=== PATIENT | male | born 1975 | race Two or more races ===

== ENCOUNTER → 2024-05-29 | Outpatient (BNVA) | payer BC, SELFPAY | END | disposition home or self-care (01) | PROVIDERS: PCP Nurse Practitioner Family; Referring Provider Nurse Practitioner Family; Visit Provider Urology | DX: N40.1 Benign prostatic hyperplasia with lower urinary tract symptoms (principal); N13.8 Other obstructive and reflux uropathy; R36.1 Hematospermia; R31.29 Other microscopic hematuria; I10 Essential (primary) hypertension; E66.9 Obesity, unspecified; Z68.28 Body mass index [BMI] 28.0-28.9, adult | CPT/HCPCS: 81003; 99202; G0463 ==

== ENCOUNTER → 2024-05-29 | Outpatient (CLI) | payer BC, SELFPAY | END | disposition home or self-care (01) | PROVIDERS: PCP Nurse Practitioner Family; Referring Provider Urology; Visit Provider Urology | DX: N40.1 Benign prostatic hyperplasia with lower urinary tract symptoms (principal) | CPT/HCPCS: 36415; 84153 ==

== ENCOUNTER → 2024-07-03 | Outpatient (BNVA) | payer BC, SELFPAY | END | disposition home or self-care (01) | PROVIDERS: PCP Nurse Practitioner Family; Referring Provider Nurse Practitioner Family; Visit Provider Urology | DX: N40.1 Benign prostatic hyperplasia with lower urinary tract symptoms (principal); R39.12 Poor urinary stream | CPT/HCPCS: 51741; 51798 ==

== ENCOUNTER 2024-07-08 07:50 | Day surgery (SDC) | payer BC, SELFPAY ==
[2024-07-04 14:14] VITALS: BMI 28.7
[2024-07-08] VITALS (12 sets, daily range): BP systolic 112–151; BP diastolic 68–96; PULSE 65–96; RESP 10–24; TEMP 36.2; O2SAT 95–99; BMI 27.6
--- NOTE | 2024-07-08 08:43 | SUR.PREOP ---
notified 500 ml saline bags are not available. okayed 100 ml bags of normal saline for todays procedure.
[2024-07-08] MEDS: SODIUM CHLORIDE 0.9% 50 ML 100 ML IV (09:18)
[2024-07-08] MEDS: MIDAZOLAM INJ 1 MG/ML VIAL 2 ML (ASD USE ONLY) 2 MG IV (09:19)
[2024-07-08] MEDS: DiphenhydrAMINE INJ 50 MG/ML VIAL 25 MG IV (09:28)
[2024-07-08] MEDS: fentaNYL CIT INJ 50 mCg/ML AMP 2ML (ASD USE ONLY) IV (09:28)
[2024-07-08] MEDS: SIMETHICONE 40 MG/0.6 ML ORAL SYRINGE PO (09:29)
== END 2024-07-08 10:25 | disposition home or self-care (01) ==
PROVIDERS: PCP Nurse Practitioner Family; Referring Provider Internal Medicine Gastroenterology; Visit Provider Internal Medicine Gastroenterology
PROC: 0DBE8ZX Excision of Large Intestine, Via Natural or Artificial Opening Endoscopic, Diagnostic (ICD-10-PCS; CPT 45380; principal; 2024-07-08 08:00)
PROC: (CPT 43239; 2024-07-08 08:00)
DX: K52.9 Noninfective gastroenteritis and colitis, unspecified (principal); D12.5 Benign neoplasm of sigmoid colon; K64.9 Unspecified hemorrhoids; K57.31 Diverticulosis of large intestine without perforation or abscess with bleeding
CPT/HCPCS: 45380; A4217; A4649; J1200; J2250; J3010; A9270

== ENCOUNTER → 2024-07-14 | Outpatient (CLI) | payer BC, SELFPAY ==
--- NOTE | 2024-07-14 10:30 | XR_ITS ---
Examination: CT abdomen with intravenous contrast CT pelvis with intravenous contrast 2-D coronal reconstructions 2-D sagittal reconstructions Date and time of exam:July 14, 2024 1045 hrs. Indications: Hematuria beginning one month ago. CTDI: vol (mGy) 14.1 DLP: (mGycm) 797 Technique: Multiple axial sections of the abdomen and pelvis have been obtained. 64 slice high-resolution scanner used. 3 mm axial sections have been obtained, post intravenous injection 60 cc [id number] 2-D sagittal, coronal reconstructions obtained. Low dose protocols were performed. One or more of the following dose reduction techniques were used; automated exposure control, adjustment of the mA and/or KV according to patient size, use of iterative reconstruction technique. 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
== END | disposition home or self-care (01) ==
LOC: CCTX 10:05
PROVIDERS: Referring Provider Urology; Visit Provider Urology
DX: Q62.39 Other obstructive defects of renal pelvis and ureter (principal)
CPT/HCPCS: 74177; A4649; Q9967

== ENCOUNTER → 2024-07-21 | Outpatient (BNVA) | payer BC, SELFPAY | END | disposition home or self-care (01) | PROVIDERS: PCP Nurse Practitioner Family; Referring Provider Nurse Practitioner Family; Visit Provider Urology | DX: N40.1 Benign prostatic hyperplasia with lower urinary tract symptoms (principal); N13.8 Other obstructive and reflux uropathy; R36.1 Hematospermia; I10 Essential (primary) hypertension | CPT/HCPCS: 76872 ==

== ENCOUNTER → 2024-08-29 | Outpatient (BNVA) | payer BC, SELFPAY | END | disposition home or self-care (01) | PROVIDERS: PCP Nurse Practitioner Family; Referring Provider Nurse Practitioner Family; Visit Provider Urology | DX: N32.89 Other specified disorders of bladder (principal); N40.1 Benign prostatic hyperplasia with lower urinary tract symptoms; N13.8 Other obstructive and reflux uropathy; I10 Essential (primary) hypertension; E78.00 Pure hypercholesterolemia, unspecified | CPT/HCPCS: 52000; 81003; 96372; A4217; A4649; C1894; J1580; A9270 ==

== ENCOUNTER → 2024-09-04 | Outpatient (CLI) | payer BC, SELFPAY ==
--- NOTE | 2024-09-04 14:30 | XR_ITS ---
Examination: Nuclear medicine kidney imaging flow and function multiple studies Exam date and time: September 04, 2024, 1412 hrs. Indications: Lower back pain beginning 3 years ago, CT urogram July 14, 2024 bilateral mild to moderate congenital ureteropelvic junction obstruction pattern Technique And Findings: Intravenous administration 10.5 mCi technetium 99m MAG3 Intravenous Lasix 40 mg administered 20 minutes post MAG3 injection Normal flow and function right and left kidneys Lasix has no effect upon the excretion curves Impression: Negative examination
[2024-09-04 15:06] VITALS: BP 142/78; PULSE 58
[2024-09-04] MEDS: FUROSEMIDE INJ 10 MG/ML VIAL 2 ML 40 MG IVP (15:06)
== END | disposition home or self-care (01) ==
LOC: SNUC 13:49
PROVIDERS: PCP Urology; Referring Provider Urology; Visit Provider Urology
DX: N13.30 Unspecified hydronephrosis (principal); R36.1 Hematospermia
CPT/HCPCS: 78709; A9562; J1940

== ENCOUNTER → 2024-09-05 | Outpatient (BNVA) | payer BC, SELFPAY | END | disposition home or self-care (01) | PROVIDERS: Visit Provider Urology | DX: N40.0 Benign prostatic hyperplasia without lower urinary tract symptoms (principal); R31.9 Hematuria, unspecified; I10 Essential (primary) hypertension; E78.00 Pure hypercholesterolemia, unspecified | CPT/HCPCS: 99212; G0463 ==

== ENCOUNTER 2024-09-24 07:40 | Day surgery (SDC) | payer BC, SELFPAY ==
[2024-09-23 11:14] VITALS: BMI 28.1
--- NOTE | 2024-09-23 11:25 | EKG_ITS ---
[facility] Test Date: 2024-09-23 Pat Name: JENNIFER FARIAS Department: Room: - Gender: Male Candle Pourer: RUTHY : 1975 Requested By: Ryder Vila Order Number: [id number] Reading MD: Ryder Vila Measurements Intervals [place] Rate: 59 P: 47 TX: 154 QRS: 15 QRSD: 83 T: 46 QT: 361 QTc: 359 Interpretive Statements SINUS BRADYCARDIA WITH OCCASIONAL SUPRAVENTRICULAR PREMATURE COMPLEXES No previous ECG available for comparison /store/[email or web address]/[id number]/[id number].pdf
[2024-09-23 13:44] LABS: Alanine Aminotransferase 24 U/L (10-49); Albumin, Serum 4.6 gm/dL (3.5-5.0); Albumin/Globulin Ratio 1.7 (1.2-2.2); Alkaline Phosphatase 63 U/L (46-116); Anion Gap 5 (7-16); Aspartate Amino Transferase 18 U/L (0-34); BUN/Creatinine Ratio 23 Ratio (12-20); Bilirubin,Total 0.4 mg/dL (0.3-1.2); Blood Urea Nitrogen 18 mg/dL (9-23); Calcium 9.5 mg/dL (8.3-10.6); Calcium (Corrected) 9.5 mg/dL (8.5-10.1); Chloride 105 mMol/L (98-107); Creatinine (Component) 0.8 mg/dL (0.6-1.3); Estimated Creatinine Clearance 114.1 mL/min (>60); Globulin 2.7 gm/dL (2.3-3.5); Glucose 91 mg/dL (74-106); Osmolality,Calculated 272 (275-295); Potassium 4.1 mMol/L (3.4-5.1); Sodium 135 mMol/L (136-145); Total Protein 7.3 gm/dL (5.7-8.2); eGFR > 60 See Note
[2024-09-24] VITALS (7 sets, daily range): BP systolic 125–156; BP diastolic 78–99; PULSE 59–93; RESP 12–20; TEMP 36.3–36.8; O2SAT 95–97; BMI 27.2
--- NOTE | 2024-09-24 11:22 | SUR.PHASEI ---
1122: Pt. wakes to name then drifts back to sleep, vitals stable, breathing unlabored, no signs of distress, no dressingin place, no active bleed noted, report received from [employer] MEDINA, Rui CORONEL and MD Solis.
[2024-09-24] MEDS: HYDROmorphone INJ 2 MG/ML VIAL 0.4 MG IVP ×2 (11:40→11:54)
--- NOTE | 2024-09-24 12:15 | SUR.PHASEII ---
1215: Pt. AAOx4, vitals stable, breathing unlabored, no complaint of pain or nausea, no dressing in place, pt. able to void hematuria, pt. toleratred sips of water well, pt. ambulated to wheelchair with steady gait and no assist, no complications. Gave discharge instructions to the pt. and his ride using copier repair technician, both verbalized understanding and had no further questions. Pt. left with all personal belongings.
--- NOTE | 2024-09-24 13:11 | PD.SUROPNT ---
Date of Procedure 09/24/24 Pre Op Diagnosis BPH with urinary obstruction, hematospermia, bilateral ureteropelvic junction obstruction Post Op Diagnosis BPH with urinary obstruction no ureteropelvic junction obstruction identified Procedure Cystoscopic examination bilateral retrograde pyelogram bilateral ureteroscopy Findings No ureteropelvic junction obstruction identified Procedure Description Indications of procedure this is a 48-year-old gentleman he was seen in urology office with BPH with urinary obstruction and hematospermia and he has a CAT scan of the abdominal pelvis done with contrast which revealed bilateral ureteropelvic junction obstruction. Patient has been seen by Dr. Toro he was recommended cystoscopy retrograde ureteroscopy procedure and complications were discussed with the patient in great detail informed consent is obtained Patient was brought to the operating room in a satisfactory condition after appropriate premedication was put on the operating table in a supine position general anesthesia was given uneventfully patient was positioned in a dorsal lithotomy position parts were prepped and draped in the usual sterile fashion 2% lidocaine was instilled into the urethra. 21 cystoscope was used to to do the cystoscopy examination of anterior urethra was without any stricture prostate urethra revealed bilobar prostatic hypertrophy. Inside of the bladder and all the quadrant was carried out he had moderate to coarse bladder trabeculation no tumor stone or diverticula was identified both ureteral orifices were identified they were effluxing clear urine next I passed a open-ended Pollick catheter right side through the open-ended Pollick catheter I passed the safety wire into the upper pole calyx semirigid ureteroscope was used to do ureteroscopy and there was no obstruction identified. Next through the ureteroscope I did retrograde pyelogram again no ureteral obstruction was identified no ureteropelvic junction obstruction identified and similar procedure was repeated on the left side findings were the same on the left side. Delayed film revealed no ureteropelvic junction obstruction. Bladder was emptied after instruments were withdrawn gently patient after having tolerated the procedure well was sent to the recovery room in a satisfactory condition to be discharged home with the full postoperative instructions verbally as well as in writing to be followed in urology office Anesthesia GETA Pathology / specimen None Estimated Blood Loss 0.5 Condition Stable Disposition PACU Surgeon Shauna Harley MD Surgical Staff Operation Date: 09/24/24 10:15 Case Staff Anesthesiologist: Kennedy Solis
--- NOTE | 2024-09-24 13:45 | XR_ITS ---
Examination: Intraoperative retrograde pyelogram Fluoroscopy 4 spot fluoroscopic abdomen films Exam date and time: September 24, 2024 1142 hours INDICATIONS: Back pain flank pain beginning 3 years ago, bilateral mild to moderate congenital ureteropelvic junction obstruction pattern on CT urogram July 14, 2024 TECHNIQUE AND FINDINGS: Fluoroscopy 10 seconds 4 spot fluoroscopic films of the abdomen Opacification of the calyceal systems with no significant hydronephrosis IMPRESSION: Retrograde pyelograms as above
== END 2024-09-24 12:15 | disposition home or self-care (01) ==
PROVIDERS: Anesthesiology; PCP Family Medicine; Referring Provider Urology; Visit Provider Urology
PROC: 0TJB8ZZ Inspection of Bladder, Via Natural or Artificial Opening Endoscopic (ICD-10-PCS; CPT 52000; principal; 2024-09-24 10:00)
DX: N40.1 Benign prostatic hyperplasia with lower urinary tract symptoms (principal); R36.1 Hematospermia; N13.8 Other obstructive and reflux uropathy; Z01.810 Encounter for preprocedural cardiovascular examination
CPT/HCPCS: 52351; 36415; 74420; 80053; 93005; A4217; A4649; C1769; C1894; J1100; J1171; J2250; J2405; J2704; J3010

== ENCOUNTER 2024-09-26 18:05 | Emergency (ER) | payer BC, SELFPAY ==
[2024-09-26 18:48] VITALS: BP 129/82; PULSE 87; RESP 18; TEMP 37.6; O2SAT 97; BMI 25.5
--- NOTE | 2024-09-26 18:52 | XR_ITS ---
Examination: CT abdomen and pelvis without contrast. Coronal 3-D reconstructions. Sagittal 2-D reconstructions. Date and time of exam:September 26, 2024 1904 hours Comparison July 14, 2024 INDICATIONS: History right flank pain 3 days CTDI: vol (mGy): 7.14 DLP: (mGycm): 445 Technique: Axial images of the abdomen have been obtained, 3 mm slice thickness Intravenous contrast material has not been administered. Low dose protocols were performed. One or more of the following dose reduction techniques were used; automated exposure control, adjustment of the mA and/or KV according to patient size, use of iterative reconstruction technique. Findings: No focal liver or splenic lesion No gallstones No pancreatic or adrenal mass Stable congenital ureteropelvic junction obstruction No renal or ureteral calculi, no hydronephrosis Normal appendix No bowel obstruction No diverticulitis Transverse prostate dimension 3.9 cm Urinary bladder wall thickening up to 8 mm IMPRESSION: Stable mild congenital ureteropelvic junction obstruction No renal or ureteral calculi Normal appendix Cystitis pattern
--- NOTE | 2024-09-26 18:53 | PD.EDRME ---
Rapid Medical Screening Exam RME Arrival date/time: 09/26/24 18:05 This is a case of 48-year-old male with history of kidney stone status post stent few days ago came in in the emergency room due to right flank pain radiating to the right lower abdomen with nausea vomiting due to worsening of the pain this patient decided to start consult here in the emergency room patient denies any urinary symptoms Chief Complaint: Abdominal Pain Time Seen by Provider: 09/26/24 18:13 Vital signs: Vital Signs Temperature 99.6 F 09/26/24 18:48 Pulse Rate 87 09/26/24 18:48 Respiratory Rate 18 09/26/24 18:48 Blood Pressure 129/82 09/26/24 18:48 Pulse Oximetry (%) 97 09/26/24 18:48 Oxygen Delivery Method Room Air 09/26/24 18:48
[2024-09-26 19:26] LABS: Basophils % (Auto) 0 % (0-2.5); Eosinophils % (Auto) 0 % (0-10); Hematocrit 42.1 % (41.0-53.0); Hemoglobin 14.8 g/dL (13.5-16.0); Immature Granulocytes % (Auto) 0 % (0-0); Immature Granulocytes Auto 0.03 Thou/mm3 (0.00-0.00); Lymphocytes # (Auto) 1.3 Thou/mm3 (1.0-4.8); Lymphocytes % (Auto) 14 % (10-50); Mean Corpuscular HGB Conc 35.2 g/dl (31.0-37.0); Mean Corpuscular Hemoglobin 30.6 pg (25.0-35.0); Mean Corpuscular Volume 87 fL (80-100); Monocytes # (Auto) 1.3 Thou/mm3 (0.0-0.8); Monocytes % (Auto) 13 % (0-12); Neutrophils # (Auto) 6.8 Thou/mm3 (1.8-7.7); Neutrophils % (Auto) 72 % (37-80); Nucleated Red Blood Cell % 0 /100 WBC (0); Platelet Count 190 Thou/mm3 (140-440); Red Blood Count 4.84 Miln/mm3 (4.50-5.90); White Blood Count 9.4 Thou/mm3 (3.8-10.6)
[2024-09-26 19:38] LABS: Collection Type, Urine Clean Catch
[2024-09-26 19:52] LABS: Alanine Aminotransferase 26 U/L (10-49); Albumin, Serum 4.7 gm/dL (3.5-5.0); Albumin/Globulin Ratio 1.7 (1.2-2.2); Alkaline Phosphatase 69 U/L (46-116); Anion Gap 7 (7-16); Aspartate Amino Transferase 18 U/L (0-34); BUN/Creatinine Ratio 15 Ratio (12-20); Blood Urea Nitrogen 16 mg/dL (9-23); Calcium 9.7 mg/dL (8.3-10.6); Calcium (Corrected) 9.7 mg/dL (8.5-10.1); Carbon Dioxide 27.2 mMol/L (20.0-31.0); Chloride 102 mMol/L (98-107); Creatinine (Component) 1.1 mg/dL (0.6-1.3); Estimated Creatinine Clearance 78.6 mL/min (>60); Globulin 2.7 gm/dL (2.3-3.5); Glucose 113 mg/dL (74-106); Lipase 39 U/L (12-53); Osmolality,Calculated 274 (275-295); Potassium 3.9 mMol/L (3.4-5.1); Sodium 136 mMol/L (136-145); Total Protein 7.4 gm/dL (5.7-8.2); eGFR > 60 See Note
[2024-09-26 20:01] LABS: Bacteria,Urine Rare; Bilirubin,Urine Negative (Negative); Blood,Urine 3+ (Negative); Clarity,Urine Clear (Clear/Hazy); Color,Urine Colorless (Lt Yel-Yel); Glucose, Urine Negative (Negative); Ketones,Urine Trace (Negative); Leukocyte Esterase,Urine Positive (Negative); Nitrite,Urine Negative (Negative); Protein,Urine Trace (Neg - Trace); RBC,Urine 494 /hpf (0-3); Specific Gravity,Urine 1.013 (1.001-1.035); Squamous Epithelial Cell,Urine < 1 /hpf (0-5); Urobilinogen,Urine Negative mg/dL (0.0-1.0); WBC,Urine 41 /hpf (0-5)
--- NOTE | 2024-09-26 20:18 | PD.EDABDPN ---
ED Abdominal Pain RME/HPI General Chief Complaint: Abdominal Pain Stated complaint: ABDOMINAL PAIN Time seen by provider: 09/26/24 18:13 Arrival date/time: 09/26/24 18:05 This is a case of a 48-year-old male who came into the emergency room due to right flank pain for 3 days radiating to right lower quadrant history of kidney stone history of stent last Sunday patient started to have pain no urinary symptoms denies any painful urination denies any hematuria denies any urgency denies any increased in urination denies any fever chills Source: patient Mode of arrival: ambulatory Limitations: no limitations RME / HPI RME / HPI narrative: 09/26/24 18:05 This is a case of 48-year-old male with history of kidney stone status post stent few days ago came in in the emergency room due to right flank pain radiating to the right lower abdomen with nausea vomiting due to worsening of the pain this patient decided to start consult here in the emergency room patient denies any urinary symptoms Related Data Home Medications ?Medication ?Instructions ?Recorded ?Confirmed tamsulosin 0.4 mg capsule (Flomax) 0.4 mg PO QHS 09/05/24 09/24/24 omeprazole 40 mg capsule,delayed 40 mg PO BID 09/23/24 09/24/24 release Previous Rx's ?Medication ?Instructions ?Recorded tramadol 50 mg tablet 50 mg PO Q8H PRN pain #14 tabs 09/24/24 cephalexin 500 mg capsule 500 mg PO QID #40 caps 09/26/24 hydrocodone 5 mg-acetaminophen 325 1 tab PO Q6H PRN pain #20 tabs 09/26/24 mg tablet ondansetron 4 mg disintegrating 4 mg PO Q8H PRN nausea and 09/26/24 tablet vomiting #20 tabs Allergies Allergy/AdvReac Type Severity Reaction Status Date / Time No Known Allergies Allergy Verified 09/26/24 18:09 Review of Systems Constitutional Constitutional: Reports system reviewed and no additional complaints, except as documented ENT Ears, Nose, Mouth, and Throat: Denies dysphagia and Denies odynophagia Cardiovascular Cardiovascular: Reports system reviewed and no additional complaints, except as documented Respiratory Respiratory: Reports system reviewed and no additional complaints, except as documented Gastrointestinal Gastrointestinal: Reports as per HPI, Reports abdominal pain, Denies belching, Denies bloating, Denies change in bowel habits, Denies change in stool character, Denies coffee ground emesis, Denies constipation, Denies cramping, Denies diarrhea, Denies dyspepsia, Denies dysphagia, Denies early satiety, Denies excessive flatus, Denies fecal incontinence, Denies heartburn, Denies hematemesis, Denies hematochezia, Denies loose stools, Denies melena, Reports nausea, Denies odynophagia, Denies tenesmus and Reports vomiting Genitourinary Genitourinary: Reports as per HPI, Denies difficulty urinating, Denies difficulty with ejaculations, Denies dysuria, Denies hematuria, Denies nocturia, Denies oliguria and Denies penile discharge Musculoskeletal Musculoskeletal: Reports system reviewed and no additional complaints, except as documented Neurologic Neurologic: Reports system reviewed and no additional complaints, except as documented Past Medical History Past Medical History NEUROLOGIC: Negative Neurological Disorders or Seizures CARDIAC: Positive Cardiac Disorders, Hypercholesterolemia and Hypertension (run out of meds has not seen Dr to refill); Negative Congestive Heart Failure RESPIRATORY: Negative Chronic Obstructive Pulmonary Disease (COPD) GASTROINTESTINAL: Negative Gastrointestinal Disorders or Hepatitis GENITOURINARY: Positive Genitourinary Disorders and Benign Prostatic Hyperplasia; Negative Renal Disease MUSCULOSKELETAL: Negative Musculoskeletal Disorders ENDOCRINE: Negative Endocrine Disorders, Diabetes Mellitus Type 1 or Diabetes Mellitus Type 2 HEMATOLOGIC: Negative Blood Disorders OTHER HISTORY: Negative Hospitalization, Autoimmune Disease, Shingles, Blood Transfusions, Blood Transfusion Reaction, Anesthesia Reactions or Cancer Family History FAMILY HISTORY: Positive Family Cardiac Disorders and Family Surgery; Negative Family Psychiatric Problems, Family Respiratory Disorders, Family Gastrointestinal Problems, Family Cancer or Family Anesthesia Reaction Surgical History SURGICAL: Negative Endocrine Surgery or Ear Surgery Social History SMOKING STATUS: Never smoker ED Exam General Limitations: Present no limitations General appearance: Present alert and in no apparent distress; Absent appears intoxicated or anxious Head Head exam: Present atraumatic, normocephalic and normal inspection Eye Eye exam: Present normal appearance, PERRL and EOMI ENT ENT exam: Present normal exam Neck Neck exam: Present normal inspection and full ROM Chest Chest inspection: Present normal inspection and symmetric chest wall rise Respiratory Respiratory exam: Present normal lung sounds bilaterally; Absent respiratory distress or wheezes Cardiovascular Cardiovascular exam: Present regular rate and normal rhythm Abdominal Exam Abdominal exam: Present soft, tenderness (Patient have mild tenderness on the right flank and right lower quadrant) and normal bowel sounds; Absent guarding, rebound, rigidity, diminished bowel sounds, hyperactive bowel sounds, hypoactive bowel sounds, organomegaly, trauma, incision, psoas sign, obturator sign, Ovalle's sign, Rovsing's sign or tenderness at McBurney's Point Abdominal tenderness: Present RLQ and mild exam: Present normal inspection and other (No CVA tenderness) Extremities Exam Extremities exam: Present normal inspection Back Exam Back exam: Present normal inspection Course Quality Measures none Orders Category Date Time Status CT abdomen pelvis wo con Stat Exams 09/26/24 18:52 Completed CBC Stat Lab 09/26/24 19:15 Completed Comprehensive Metabolic Panel Stat Lab 09/26/24 19:15 Completed Lipase Stat Lab 09/26/24 19:15 Completed Urinalysis Stat Lab 09/26/24 19:29 Completed Ketorolac Inj [Toradol Inj] Med 09/26/24 20:12 Discontinued 60 mg IM X1 ONE Ondansetron Odt [Zofran Odt] Med 09/26/24 20:13 Discontinued 4 mg PO X1 ONE cefTRIAXone [Rocephin] 1,000 mg Med 09/26/24 20:12 Discontinued Lidocaine 1% 20 ml [Xylocaine 1% 20 ML] 2.1 ml IM X1 Vital Signs Vital signs: Vital Signs Temperature 99.6 F 09/26/24 18:48 Pulse Rate 87 09/26/24 18:48 Respiratory Rate 18 09/26/24 18:48 Blood Pressure 129/82 09/26/24 18:48 Pulse Oximetry (%) 97 09/26/24 18:48 Oxygen Delivery Method Room Air 09/26/24 18:48 Oxygen saturation 97% WNL Abdominal Pain MDM MDM Narrative MDM Narrative:: This is a case of a 48-year-old male who came in the emergency room due to right flank pain radiating to the right lower abdomen patient has a history of kidney stone and had stent last Sunday patient is fine until today when the patient started to have right flank pain radiating to the right lower abdomen with nausea vomiting denies any constipation diarrhea or any urinary symptoms denies any fever or chills physical examination patient is awake alert oriented not in distress nontoxic looking not tachypneic not tachycardic and nonhypoxic well-hydrated patient abdominal exam noted mild tenderness on the right flank in the right lower quadrant but no guarding no rebound no rigidity negative psoas negative which returned negative Rovsing's negative McBurney's negative CVA tenderness patient blood test showed no leukocytosis no anemia kidney and liver function is normal no electrolyte imbalance urinalysis showed blood and WBC in the urine thus patient was treated for urinary tract infection patient was given ceftriaxone IM here in the emergency room CT scan of the abdomen pelvis is noted to have congenital stable UPJ obstruction where the patient had already surgery last Sunday and cystitis patient will be discharged with cephalexin for cystitis and urinary tract infection and he was advised to follow-up with the urologist today or on Sunday for reevaluation of the cystitis patient was advised for any recurrence worsening symptoms or any emergent concern he will return in the emergency room immediately or call 911 patient will follow up with PCP in 2 days for reevaluation at the time of exam the abdominal exam is benign nonsurgical no signs and symptoms of sepsis no signs and symptoms of dehydration patient was discharged with stable condition with stable gait. Patient understood verbally the discharge instruction and agreed with the treatment plan and discharge Patient data External records reviewed:: [facility] previous records Clinical information provided by:: patient Social determinants that could affect healthcare access:: none Patient has the following chronic illnesses:: <del>None</del> How is presenting disease/condition affected by chronic disease/condition?: no chronic disease Evaluation data The following diagnostics were reviewed and interpreted by me:: lab results and radiology exam(s) Lab and/or radiology exams considered but not ordered:: Reviewed and interpreted interpretation reviewed right Interpretation Summary: Reviewed Medications / Prescriptions Medications or Prescriptions considered but not ordered:: Given Medication administrations:: Medication Administration History Discontinued Medications Ceftriaxone Sodium 1,000 mg/ (Lidocaine HCl 2.1 ml) 0 mg IM X1 ONE Stop: 09/26/24 20:13 Ketorolac Tromethamine (Ketorolac Inj 60 Mg/2 Ml Vial) 60 mg IM X1 ONE Stop: 09/26/24 20:13 Ondansetron HCl (Ondansetron Odt 4 Mg Tabrap) 4 mg PO X1 ONE; Protocol Stop: 09/26/24 20:14 given Consultations Consultation(s) initiated? (list below): No Diagnosis Differential diagnosis abdominal pain: abdominal pain, acute appendicitis, calculus of kidney and diverticulitis Most likely diagnosis given after review of the tests above:: cystitis. urinary tract infection Admission Indicated Admission indicated?: not indicated Admission Request Was there a request for admission?: No Disposition Plan Disposition Plan: Discharge Discharge Attestation Discharge Attestation: The patient and all family members were given an opportunity to ask questions and understood the discharge instructions. Discharge instructions specifically effects, indications for sooner follow up or return to the emergency department, and the expected course of current diagnosis. Patient condition: Stable Discharge Plan Plan Patient Disposition: HOME (Self Care) Discharge Disposition comment: Stable Prescriptions/Referrals Prescriptions/Med Rec: New hydrocodone-acetaminophen 5-325 mg tablet 1 tab PO Q6H MDD 4 tabs per day PRN (Reason: pain) Qty: 20 0RF ondansetron 4 mg tablet,disintegrating 4 mg PO Q8H PRN (Reason: nausea and vomiting) Qty: 20 0RF cephalexin 500 mg capsule 500 mg PO QID Qty: 40 0RF No Action tamsulosin [Flomax] 0.4 mg capsule 0.4 mg PO QHS omeprazole 40 mg capsule,delayed release(DR/EC) 40 mg PO BID Patient Comments: TAKE 1 CAPSULE BY MOUTH TWICE DAILY tramadol 50 mg tablet 50 mg PO Q8H PRN (Reason: pain) Qty: 14 0RF Referrals: Karis Huston, [employer]ELOPER [Primary Care Provider] - In 1 week Problem List Clinical Impression: Cystitis, Urinary tract infection Patient/Caregiver Discharge Instructions Education Materials: Understanding Urinary Tract ... Additional Instructions: Follow-up with your primary care physician in 2 days for reevaluation follow-up with your urologist for further evaluation and treatment of cystitis is status post stent secondary to kidney stone increase water intake keep hydrated finish the course of antibiotic Print Language: Sami Stand Alone Forms: [facility] Award Info., Patient Portal Info Letter PA/SOLAR INSTALLER Supervising Physician PA/SOLAR INSTALLER Supervising Physician: dr stauffer
[2024-09-26] MEDS: KETOROLAC INJ 60 MG/2 ML VIAL IM (20:37)
[2024-09-26] MEDS: ONDANSETRON ODT 4 MG TABRAP PO (20:37)
[2024-09-26] MEDS: cefTRIAXone 1,000 MG, LIDOCAINE 1% 20 ML 2.1 ML IM (20:38)
== END 2024-09-26 20:49 | disposition home or self-care (01) ==
PROVIDERS: Nurse Practitioner Family; Emergency Provider Emergency Medicine; PCP Nurse Practitioner Family
DX: N30.90 Cystitis, unspecified without hematuria (principal); Z87.442 Personal history of urinary calculi
CPT/HCPCS: 36415; 74176; 80053; 81001; 83690; 85025; 96372; 99284; J0696; J1885; J3490; Q0162

== ENCOUNTER → 2024-09-29 | Outpatient (BNVA) | payer BC, SELFPAY | END | disposition home or self-care (01) | PROVIDERS: PCP Nurse Practitioner Family; Referring Provider Nurse Practitioner Family; Visit Provider Urology | DX: N40.1 Benign prostatic hyperplasia with lower urinary tract symptoms (principal); N13.8 Other obstructive and reflux uropathy; R36.1 Hematospermia; Z98.890 Other specified postprocedural states; I10 Essential (primary) hypertension; E78.00 Pure hypercholesterolemia, unspecified | CPT/HCPCS: 81003; 99212; G0463 ==